=== PATIENT | female | born 1955 | race Two or more races ===

== ENCOUNTER 2024-02-12 05:38 | Day surgery (SDC) | payer MEDICARE, MEDICAID ==
[2024-02-12] MEDS ORDERED: BUPIVACAINE 0.5 % PF 150 MG/30 ML VIAL ONE (05:49)
[2024-02-12] MEDS ORDERED: EPINEPHRINE (1:1000) 1 MG/ML AMPUL ONE (05:49)
[2024-02-12] MEDS ORDERED: FENTANYL PF 250MCG/5ML AMPUL ONE (06:21)
[2024-02-12] MEDS ORDERED: ROCURONIUM BROMIDE 50 MG/5 ML ONE (06:22)
[2024-02-12] MEDS ORDERED: SEVOFLURANE 250 ML BOTTLE IH ONE (07:03)
[2024-02-12] MEDS ORDERED: ROPIVACAINE HCL 0.5% 5 MG/ML 30ML VIAL ONE ×2 (07:34→08:42)
[2024-02-12] MEDS ORDERED: FENTANYL PF 100MCG/2ML AMPUL ONE (08:11)
[2024-02-12] MEDS ORDERED: ONDANSETRON HCL/PF 4 MG/2 ML VIAL IV ONE (09:00)
[2024-02-12] MEDS ORDERED: ONDANSETRON HCL/PF 4 MG/2 ML VIAL ONE (09:47)
== END 2024-02-12 10:15 | disposition home or self-care (01) ==
LOC: DS 05:38
PROVIDERS: ATTEND Specialist
DX: M75.41 Impingement syndrome of right shoulder (principal); M13.811 Other specified arthritis, right shoulder; I10 Essential (primary) hypertension
CPT/HCPCS: 29824; 29827; A4217; A4565; C1713; J0171; J0690; J1885; J2405; J2704; J2795; J3010; J3490